=== PATIENT | male | born 1995 | race Caucasian/White ===

== ENCOUNTER 2024-10-29 18:48 | Emergency (ER) | payer SELFPAY ==
--- NOTE | 2024-10-29 16:50 | RAD_ITS ---
PROCEDURE: ANKLE MIN 3 VIEWS 10/29/2024 REASON FOR EXAM: FALL TECHNIQUE: 3 views of the left ankle COMPARISON: None FINDINGS: No acute fracture or dislocation. Joint spaces are maintained. Ankle mortise is within normal limits. No significant soft tissue swelling. No radiopaque foreign body. RAD/Ankle min 3 Views IMPRESSION: No acute findings. Reading Location: [facility]
[2024-10-29 18:49] VITALS: BP 141/85; PULSE 89; RESP 16; TEMP 36; O2SAT 100
[2024-10-29 18:51] VITALS: BMI 22.8
--- NOTE | 2024-10-29 19:22 | ED.VIS.LOWEX ---
HPI History of Present Illness Chief Complaint: Lower Extremity Injury Detail of Chief Complaint: Left leg injury Informant: patient Narrative Narrative: Patient presents to the emergency department with an injury to his left leg. Patient states that he was standing and when changing a container in the place when the chain snapped and whipped around and struck him on the left foot and ankle sweeping both legs out from underneath him and he fell onto his left hip. This happened about noon today. He presents to the emergency department that 7:15 PM for evaluation. He is able to bear bear a little bit of weight. He complains of a lot of pain in the upper thigh when trying to walk. [facility] Medical History (Updated 10/29/24 @ 21:[address] Cheyenne Musa, ) Atypical fracture of femur Allergy/AdvReac Type Severity Reaction Status Date / Time morphine AdvReac Intermediate Nausea Verified 10/29/24 18:49 Social History Smoking Status: Never smoker ROS ROS ED Review of Systems ROS Unobtainable: other Constitutional Constitutional ED: Reports lethargy; Denies chills, fever(s), sweats or weight loss Eyes Eyes: Denies blurry vision, change in vision or diplopia ENT ENT ED: Denies rhinorrhea or sore throat Cardiovascular Cardiovascular: Denies chest pain, orthopnea or racing heartbeat Respiratory/Chest Respiratory/Chest: Denies cough, dyspnea, dyspnea on exertion, orthopnea or sputum Gastrointestinal Gastrointestinal: Denies abdominal pain, diarrhea, nausea or vomiting Genitourinary Genitourinary ED: Denies dysuria, hematuria or urinary frequency Musculoskeletal Musculoskeletal: Reports other Details: Left leg injury ; Denies arthralgias, back pain, myalgias or neck pain Integumentary Denies abscess, Abrasions or rash Neurologic Neurologic: Denies headache(s) or weakness Psychiatric Psychiatric: Denies anxiety, depression or suicidal thoughts Endocrine Endocrinology: Denies polydipsia, polyphagia or polyuria Hematologic/Lymphatic Hematologic/Lymphatic: Denies easy bleeding, easy bruising or lymphadenopathy Allergic/Immunologic Allergic/Immunologic ED: Denies mouth swelling, tongue swelling or urticaria EXAM Physical Exam Const Vital Signs: 10/29/24 18:49 10/29/24 21:06 10/29/24 21:57 Temperature 96.8 F L 98.7 F Temperature Source Temporal Pulse Rate 89 76 105 H Respiratory Rate 16 15 18 Blood Pressure 141/85 H 124/76 H 132/73 H Blood Pressure Mean 103 92 92 Pulse Ox 100 97 98 Oxygen Delivery Method Room Air Room Air Positive well nourished and well developed General Appearance ED: well developed and NAD HEENT Reports TM's clear and moist mucous membranes normocephalic and atraumatic; Negative for trauma or tenderness Tympanic Membrane ED: Yes TM's clear Eyes PERRL and EOMs intact bilaterally General Eye ED: Negative for pale conjunctiva or scleral icterus Neck no lymphadenopathy, supple and no JVD General: Negative for tenderness Chest Wall inspection of chest normal and palpation of chest normal Chest: Negative for tenderness Resp normal respiratory effort and clear to auscultation bilaterally Effort and Inspection: Negative for respiratory distress or pain with movement Auscultation: Negative for rhonchi, wheezes or diminished lung sounds Cardio regular rate, regular rhythm, S1 normal heart sound, S2 normal heart sound and no murmurs Peripheral Pulses: pulses 2+ throughout GI normal to inspection, nondistended, normoactive bowel sounds, soft to palpation, non-tender, non-distended and no masses Back/Spine no CVA tenderness and no thoracic nor lumbar tenderness Extremity Extremity Narrative: Left leg-patient has tenderness palpation over left hip and to the left groin. Has tenderness palpation of the anterior thigh proximally. No significant tenderness at the knee although he has a superficial abrasion above the patella. Patient also has some ecchymosis and bruising noted to the left lateral ankle without obvious deformity. Some ecchymosis and bruising and some mild tenderness over the proximal dorsal lateral aspect of the left foot. Neurovascularly intact. General Extremety ED: Negative for edema General Extremity: Negative for edema Neuro oriented x3, CN's II-XII intact bilaterally, no sensory deficits noted and gait normal Sensorium / Orientation: awake, alert, oriented to person, oriented to place and oriented to time Motor Exam: strength 5/5 throughout and strength abnormal Psych mental status grossly normal Skin no rashes or lesions noted and no wounds MDM MDM MDM Narrative Medical decision making narrative: Patient presents with complaint of injury to the left leg. X-rays of the left hip and pelvis obtained showed a acute left femoral neck fracture on my interpretation and radiology agreed and stated there was valgus deformity and angulation with valgus deformity and angulation. Pelvic x-ray obtained on my interpretation shows no acute fractures of the pelvic ring. Radiology felt there may be a subtle linear nondisplaced sacral fracture. Pelvic x-ray shows possibly nondisplaced sacral fracture near the left SI joint. Three-view x-rays of the foot and ankle on my interpretation show no fractures. Radiology in agreement. Discussed case with orthopedic surgeon on-call Dr. Herbert who recommended transfer to trauma center. Discussed case with [facility] emergency room physician Dr. Julian who accepted transfer of patient to their facility. Lab Data Attestation: I reviewed the patient's lab results. Labs: Laboratory Results - last 24 hr 10/29/24 21:40 WBC 8.9 RBC 4.10 L Hgb 13.1 Hct 37.0 L MCV 90.2 MCH 32.0 MCHC 35.4 RDW Std Deviation 38.9 RDW Coeff of Phyllis 12.0 Plt Count 205 MPV 8.5 Immature Gran % (Auto) 0.100 Neut % (Auto) 85.4 H Lymph % (Auto) 8.9 L [place] % (Auto) 5.4 Eos % (Auto) 0.0 Baso % (Auto) 0.2 Absolute Neuts (auto) 7.6 Absolute Lymphs (auto) 0.80 L Nucleated RBC % 0 Sodium 136 Potassium 3.9 Chloride 105 Carbon Dioxide 16.7 L Anion Gap 14 BUN 13 Creatinine 0.94 Estim Creat Clear Calc 124.01 Est GFR (MDRD) Non-Af 111 BUN/Creatinine Ratio 13.9 Glucose 103 H Calcium 9.1 Radiography Diagnostic Testing: Clinical Impression(s) from Imaging Studies Ankle X-Ray 10/29/24 16:50 IMPRESSION: No acute findings. Reading Location: [facility] Femur X-Ray 10/29/24 19:50 IMPRESSION: Acute left femoral neck fracture with valgus deformity/angulation. Reading Location: [id number] Foot X-Ray 10/29/24 19:50 IMPRESSION: No acute fracture or dislocation. [facility] Pelvis [facility] 10/29/24 19:50 IMPRESSION: Acute left femoral neck fracture deformity with valgus appearing angulation. No evidence of dislocation. Vertically oriented lucency seen at the left sacrum near the SI joint concerning for possible nondisplaced sacral fracture. Reading Location: [id number] 2 view x-rays of the left femur obtained interpreted by myself as subtle femoral neck fracture relatively nondisplaced. Radiology in agreement. Three-view x-rays of the left foot obtained interpreted by myself as no evidence of fracture or dislocation. Radiology in agreement. Three-view x-rays of the left ankle obtained interpreted by myself as no evidence of fracture or dislocation. Radiology in agreement. 1 view pelvic x-ray obtained interpreted by myself as left femoral neck fracture with no other pelvic ring fractures noted. Radiology felt there may be a lucency seen at the left sacrum near the SI joint concerning for possible nondisplaced sacral fracture. Discharge Plan Triage Chief Complaint: Lower Extremity Injury ED Provider: Cheyenne Musa Dx/Rx/DC Orders Clinical Impression: Fracture of hip, left, closed, Fracture of sacrum, Contusion of foot, left, Contusion of left ankle, Contusion of elbow, left Primary Care Provider: Care Physician,No Primary Referrals: Care Physician,No Primary [Primary Care Provider] - Print Language: Lithuanian Disposition Disposition: DC/Tx to Another Type of HCF Discharge Location: [facility] Discharge Date/Time: 10/29/24 22:27
[2024-10-29] MEDS: HYDROcodone Bitartrate/Apap 5/325 Tablet PO (19:29)
--- NOTE | 2024-10-29 19:50 | RAD_ITS ---
EXAM: Femur minimum two views CLINICAL HISTORY: Injury COMPARISON: None available TECHNIQUE: Two views left femur, 4 total images to include the entire femur FINDINGS: Acute left femoral neck fracture with valgus deformity/angulation. RAD/Femur Min 2 Views IMPRESSION: Acute left femoral neck fracture with valgus deformity/angulation. Reading Location: [id number]
--- NOTE | 2024-10-29 19:50 | RAD_ITS ---
PROCEDURE: PELVIS 1 OR 2 VIEWS 10/29/2024 REASON FOR EXAM: INJURY TECHNIQUE: 1 view(s) of the pelvis. COMPARISON: None available FINDINGS: Acute left femoral neck fracture deformity with valgus appearing angulation. No evidence of dislocation. Vertically oriented lucency seen at the left sacrum near the SI joint may represent nondisplaced sacral fracture. Symmetric appearing SI joints and pubic symphysis appear within limits. Right-sided pelvic phleboliths, incidental. RAD/Pelvis 1 or 2 Views IMPRESSION: Acute left femoral neck fracture deformity with valgus appearing angulation. No evidence of dislocation. Vertically oriented lucency seen at the left sacrum near the SI joint concernin g for possible nondisplaced sacral fracture. Reading Location: [id number]
--- NOTE | 2024-10-29 19:50 | RAD_ITS ---
EXAM: Three-view radiographs left foot CLINICAL HISTORY: Injury COMPARISON: None TECHNIQUE: Three-view left foot radiographs. FINDINGS: No fracture or dislocation. Joint spaces are maintained. No significant soft tissue swelling. No radiopaque foreign body. RAD/Foot min 3 Views IMPRESSION: No acute fracture or dislocation. Reading Location: [facility]
[2024-10-29 21:06] VITALS: BP 124/76; PULSE 76; RESP 15; O2SAT 97
[2024-10-29 21:57] VITALS: BP 132/73; PULSE 105; RESP 18; TEMP 37.1; O2SAT 98
[2024-10-29 21:58] LABS: Absolute Neutrophil Count 7.6 X10^3/uL (2.0-7.7); Basophil# 0.02 X10^3/uL; Basophil% 0.2 % (0-1); Hemoglobin 13.1 g/dL (13.0-16.5); Lymphocyte % 8.9 % (19-41); Mean Corp Hgb Conc 35.4 g/dL (32-36); Mean Corpuscular Volume 90.2 fL (80-94); Mean Platelet Vol. 8.5 fl (6.2-12.0); Monocyte# 0.48 X10^3/uL; Monocyte% 5.4 % (0-10); NRBC Flagged by Analyzer 0 % (0-5); Neutrophil # 7.63 X10^3/uL (2.7-7.7); Neutrophil % 85.4 % (47-70); Platelet Count 205 K/mm3 (150-450); RBC Distribution Width SD 38.9 fl (35.1-43.9); White Blood Count 8.9 K/mm3 (4.4-11.0)
[2024-10-29] MEDS: HYDROmorphone 0.5 MG/0.5 ML SYRINGE IV (22:12)
[2024-10-29] MEDS: Ondansetron 4 MG/2 ML Vial IV (22:12)
[2024-10-29 22:13] LABS: Anion Gap 14 (5-15); BUN 13 mg/dL (4-19); BUN/Creat Ratio 13.9 RATIO (10-20); Calcium,Total 9.1 mg/dL (7.6-11.0); Carbon Dioxide 16.7 mmol/L (21.0-32.0); Chloride 105 mmol/L (98-108); Creatinine, Serum 0.94 mg/dL (0.70-1.20); EST Glomerular Filtration Rate 111 (>60); Estimated Creatinine Clearance 124.01 ml/min (50-250); Glucose 103 mg/dL (70-99); Potassium 3.9 mmol/L (3.3-5.1); Sodium Level 136 mmol/L (133-145)
--- NOTE | 2024-10-29 22:20 | ED.RN ---
PER TYLOR GONZALEZ TO TRANSPORT PT WITH [facility]
--- NOTE | 2024-10-29 22:25 | ED.RN ---
REPORT CALLED TO MILAGROS MICHELLE AT [facility]
== END 2024-10-29 22:27 | disposition other institution (70) ==
PROVIDERS: Emergency Provider Emergency Medicine; Visit Provider Emergency Medicine
DX: S72.002A Fracture of unspecified part of neck of left femur, initial encounter for closed fracture (principal); S32.10XA Unspecified fracture of sacrum, initial encounter for closed fracture; S50.02XA Contusion of left elbow, initial encounter; S90.02XA Contusion of left ankle, initial encounter; S90.32XA Contusion of left foot, initial encounter; W18.39XA Other fall on same level, initial encounter; Y93.89 Activity, other specified; W22.8XXA Striking against or struck by other objects, initial encounter
CPT/HCPCS: 72170; 73552; 73610; 73630; 80048; 85025; 96374; 96375; 99284; A4216; J2405